=== PATIENT | female | born 1970 ===

== ENCOUNTER 2017-11-17 10:02 | Emergency (ER) | payer OTHER ==
[~2017-11-17] VITALS: Ht 165.1 cm; Wt 78.5 kg
[2017-11-17] MEDS ORDERED: BACTRIM DS TAB1 EACH PO (13:59)
== END 2017-11-17 14:29 | disposition home or self-care (01) ==
LOC: ER 10:02
DX: N83.291 Other ovarian cyst, right side (principal); R10.11 Right upper quadrant pain